=== PATIENT | male | born 1950 | race Hispanic/Latino ===

== ENCOUNTER → 2023-10-31 | Outpatient (CLI) | payer OTHER, MEDICARE ==
[~2023-10-31] MED LIST: ASCO500T10 PO; CYAN1TAB44 PO; GADOTERATE MEGLUMINE 10 MMOL/20 ML VIAL IV ONE; IPRA42SP NS; METF-444 PO; ROSU5TAB12 PO; VALS160T29 PO; VITAMIN D3 PO
== END | disposition home or self-care (01) ==
LOC: RAH 07:23
PROVIDERS: ATTEND Internal Medicine Endocrinology, Diabetes & Metabolism
DX: D35.2 Benign neoplasm of pituitary gland (principal)
CPT/HCPCS: 70553; A9575